=== PATIENT | female | born 1990 | race African-American/Black ===

== ENCOUNTER 2019-05-12 20:00 | Emergency (ER) | payer SELFPAY ==
[~2019-05-12] VITALS: Ht 172.7 cm; Wt 73.0 kg
[2019-05-12 20:03] VITALS: BP 119/76
== END 2019-05-12 22:27 | disposition left against medical advice (07) ==
LOC: ER 20:00
DX: N93.9 Abnormal uterine and vaginal bleeding, unspecified (principal); Z53.21 Procedure and treatment not carried out due to patient leaving prior to being seen by health care provider